=== PATIENT | male | born 1990 | race American Indian/Alaskan Native ===

== ENCOUNTER 2018-12-01 10:55 | Emergency (ER) | payer BC ==
[2018-12-01 11:02] VITALS: BP 144/80
--- NOTE | 2018-12-01 11:02 | Event Note ---
ED Screening Note ED Screening Note: N/V/D 5 days daughter with same symptoms no fever no recent abx, no recent travel, no recent camping no PMHx allergy: egg, dairy +smoker +drinker +marijuana This initial assessment/diagnostic orders/clinical plan/treatment(s) is/are subject to change based on patients health status, clinical progression and re- assessment by fellow clinical providers in the ED. Further treatment and workup at subsequent clinical providers discretion. Patient/guardian urged not to elope from the ED as their condition may be serious if not clinically assessed and managed. Initial orders include: labs
[2018-12-01] MEDS ORDERED: SODIUM CHLORIDE 0.9% 1000 ML 1,000 ML IV ONE (11:19)
[2018-12-01] MEDS ORDERED: ONDANSETRON 4 MG/2 ML INJ IV ONE (11:19)
--- NOTE | 2018-12-01 11:22 | Emergency Department Report ---
HPI - General Chief Complaint: Nausea/Vomiting/Diarrhea Time Seen by Provider: 12/01/18 11:01 - HPI HPI: 28-year-old -Citizen Of [place] male presents to the emergency department with a one-week history of nausea, vomiting, diarrhea and generalized abdominal pain. No recent travel. Only past medical history is for PTSD. He has not taken anything for her symptoms prior to presentation. No primary care physician. No known aggravating or alleviating factors. ED Past Medical Hx - Past Medical History Previous Medical History?: No - Surgical History Past Surgical History?: No - Social History Smoking Status: Current Every Day Smoker Substance Use Type: Alcohol - Medications Home Medications: Home Medications Medication Instructions Recorded Confirmed Last Taken Type Ondansetron [Zofran Odt] 4 mg PO Q8HR PRN #15 tab.rapdis 12/01/18 Unknown Rx ED Review of Systems ROS: Stated complaint: STOMACH VIRUS Other details as noted in HPI Comment: All other systems reviewed and negative Constitutional: denies: chills, fever Gastrointestinal: abdominal pain, nausea, vomiting, diarrhea Genitourinary: denies: dysuria, discharge Musculoskeletal: denies: back pain Physical Exam - Physical Exam Vital Signs: Vital Signs 12/01/18 10:59 Temperature 98.4 F Pulse Rate 69 Respiratory 16 Rate Blood Pressure 144/80 O2 Sat by Pulse 99 Oximetry Physical Exam: GENERAL: The patient is well-developed well-nourished. HENT: Normocephalic. Atraumatic. Patient has moist mucous membranes. EYES: Extraocular motions are intact. NECK: Supple. Trachea is midline. CHEST/LUNGS: Clear to auscultation. There is no respiratory distress noted. HEART/CARDIOVASCULAR: Regular. There is no tachycardia. There is no murmur. ABDOMEN: Abdomen is soft. Generalized tenderness to palpation. No guarding. Patient has normal bowel sounds. There is no abdominal distention. SKIN: Skin is warm and dry. NEURO: The patient is awake, alert, and oriented. The patient is cooperative. Normal speech. MUSCULOSKELETAL: There is no tenderness or deformity. There is no evidence of acute injury. ED Course Vital Signs 12/01/18 10:59 Temperature 98.4 F Pulse Rate 69 Respiratory 16 Rate Blood Pressure 144/80 O2 Sat by Pulse 99 Oximetry ED Medical Decision Making - Lab Data Result diagrams: 12/01/18 Unknown 12/01/18 Unknown - Radiology Data Radiology results: image reviewed interpreted by me: Abdominal x-ray shows nonspecific nonobstructive bowel gas - Medical Decision Making This patient presents with a one-week history of some nausea, vomiting, diarrhea and abdominal discomfort. Abdomen is soft, nondistended, nonrigid and nontoxic in appearance. Abdominal x-ray shows nonspecific nonobstructive bowel gas. Labs have been unremarkable. Patient was given a dose of Zofran and upon reevaluation the nausea has resolved. He was able to pass an oral challenge. Vital signs stable throughout her ED course. Patient will be discharged home to follow up with primary care, increase oral rehydration and will return to the ER with any worsening of his symptoms or any acute distress. - Differential Diagnosis gastroenteritis, gastritis, food poisoning Critical Care Time: No Critical care attestation.: If time is entered above; I have spent that time in minutes in the direct care of this critically ill patient, excluding procedure time. ED Disposition Clinical Impression: Nausea & vomiting Qualifiers: Vomiting type: unspecified Vomiting Intractability: non-intractable Qualified Code(s): R11.2 - Nausea with vomiting, unspecified Abdominal pain Qualifiers: Abdominal location: generalized Qualified Code(s): R10.84 - Generalized abdominal pain Disposition: - TO HOME OR SELFCARE Is pt being admited?: No Condition: Stable Instructions: Acute Nausea and Vomiting (ED), Abdominal Pain (ED) Additional Instructions: Please follow-up with a primary care physician in the next few days. Increase your oral rehydration. I am giving you a referral for a local film developing machine operator, Dr. Fisher, to follow up regarding your abdominal pain. Return to the emergency Department with any worsening of your symptoms, inability to stay hydrated, or with any acute distress. Prescriptions: Ondansetron [Zofran Odt] 4 mg PO Q8HR PRN #15 tab.rapdis PRN Reason: Nausea Referrals: HEMANTH VIRAMONTES MD [Staff Physician] - 2-3 Days DINESH FISHER MD [Staff Physician] - 2-3 Days [facility] [Outside] - 2-3 Days Forms: Work/School Release Form(ED) Time of Disposition: 13:14
[2018-12-01 11:31] LABS: Basophils # (Auto) 0.1 K/mm3 (0.0-0.1); Eosinophils # (Auto) 0.2 K/mm3 (0.0-0.4); Eosinophils % (Auto) 2.8 % (0.0-4.3); Hematocrit 44.1 % (35.5-45.6); Hemoglobin 14.3 gm/dl (11.8-15.2); Lymphocytes # (Auto) 1.9 K/mm3 (1.2-5.4); Lymphocytes % (Auto) 26.2 % (13.4-35.0); Mean Corpuscular HGB Conc 33 % (32-34); Mean Corpuscular Volume 77 fl (84-94); Monocytes # (Auto) 0.5 K/mm3 (0.0-0.8); Monocytes % (Auto) 7.1 % (0.0-7.3); Platelet Count 154 K/mm3 (140-440); Red Blood Count 5.73 M/mm3 (3.65-5.03); Red Cell Distribution Width 13.9 % (13.2-15.2)
[2018-12-01 11:51] LABS: Alanine Aminotransferase 24 units/L (7-56); Albumin 4.7 g/dL (3.9-5); BUN/Creatinine Ratio 10; Blood Urea Nitrogen 9 mg/dL (9-20); Calcium 9.1 mg/dL (8.4-10.2); Hemolysis Index 2
--- NOTE | 2018-12-01 12:09 | XRay Report ---
ABDOMEN 2 VIEW(S) INDICATION / CLINICAL INFORMATION: Abd pain. COMPARISON: None available. FINDINGS: TUBES / LINES: None. BOWEL GAS PATTERN: No significant abnormality. FREE AIR / EXTRALUMINAL GAS: None seen. ADDITIONAL FINDINGS: No significant additional findings. IMPRESSION: No significant abnormality. Signer Name: Daniel Hall Jr, MD Signed: 12/01/2018 12:04 PM Workstation Name: [id number]
== END 2018-12-01 13:38 | disposition home or self-care (01) ==
LOC: ED 10:55
DX: R11.2 Nausea with vomiting, unspecified (principal); R10.84 Generalized abdominal pain; F17.200 Nicotine dependence, unspecified, uncomplicated
CPT/HCPCS: 36415; 74019; 80053; 83690; 85025; 96361; 96374; 99284; J2405; J7030